=== PATIENT | female | born 1970 | race Hispanic/Latino ===

== ENCOUNTER 2017-03-16 08:09 | Observation (INO) | payer OTHER ==
[2017-03-16 08:16] VITALS: BMI 23.4
[2017-03-16] MEDS: Albuterol-Ipratrop 3 mg / 0.5 (3 ml) UD IH SCH ×3 (08:30→09:00)
--- NOTE | 2017-03-16 08:36 | ED PDOC ---
Arrival/HPI - General Chief Complaint: Shortness Of Breath Time Seen by Provider: 03/16/17 08:16 Historian: Patient, Family - History of Present Illness Narrative History of Present Illness (Text): 03/16/17 08:15 Gayle Matthews is a 46 year old female who presents to the emergency department for 1 month duration of shortness of breath and cough that worsened last night. Patient indicates that she experiences uncontrollable coughing and chest tightness which worsens when she lays flat. Patient's family endorses that patient smokes frequently and says patient's last cigarette was this morning. Patient used her inhaler treatment this morning to no relief. Patient denies any prior admissions or ER evaluations for asthma, any appetite changes, or any other complaint at this time. She states cough and shortness of breath worsened for past day. Denies calf pain or swelling. Denies pleuritic pain. PMD: Sr. Flowers 03/16/17 13:43 Time/Duration: Other (1 month) Symptom Onset: Gradual Symptom Course: Unchanged Severity Level: Moderate Activities at Onset: Rest Context: Home Past Medical History - Provider Review Nursing Documentation Reviewed: Yes - Infectious Disease Hx of Infectious Diseases: None - Pulmonary Hx Asthma: Yes - Psychiatric Hx Psychophysiologic Disorder: No Hx Anxiety: No Hx Bipolar Disorder: No Hx Depression: No Hx Emotional Abuse: No Hx Hallucinations: No Hx Panic Disorder: No Hx Post Traumatic Stress Disorder: No Hx Psychosis: No Hx Physical Abuse: No Hx Schizophrenia: No Hx Sexual Abuse: No Hx Substance Use: No - Surgical History Hx Tubal Ligation: Yes - Anesthesia Hx Anesthesia: Yes Hx Anesthesia Reactions: No Hx Malignant Hyperthermia: No - Suicidal Assessment Feels Threatened In Home Enviroment: No Family/Social History - Physician Review Nursing Documentation Reviewed: Yes Family/Social History: No Known Family HX Smoking Status: Heavy Smoker > 10 Cigarettes Daily Hx Alcohol Use: No Hx Substance Use: No Allergies/Home Meds Allergies/Adverse Reactions: Allergies Penicillins Allergy (Verified 03/16/17 08:16) ANAPHYLAXIS Home Medications: Home Meds Medication Instructions Recorded Confirmed No Known Home Med 03/16/17 03/16/17 Review of Systems - Review of Systems Constitutional: Fatigue. absent: Fevers, Night Sweats Eyes: absent: Vision Changes, Eye Pain ENT: absent: Hearing Changes Respiratory: SOB, Cough Cardiovascular: TUCKER. absent: Chest Pain, Edema, Calf Pain Gastrointestinal: absent: Abdominal Pain Genitourinary Female: absent: Dysuria, Hematuria, Urine Output Changes Musculoskeletal: absent: Arthralgias, Neck Pain Skin: absent: Rash Neurological: absent: Headache, Dizziness Endocrine: absent: Polyuria Hemo/Lymphatic: absent: Adenopathy Psychiatric: absent: Anxiety Physical Exam - Physical Exam Narrative Physical Exam (Text): Head: Atraumatic. Normocephalic. Eyes: PERRL. EOMI. Conjunctivae are not pale. ENT: No drooling, no angioedema, no pharyngeal erythema or exudates. No drooling. No stridor. Neck: Supple. Full ROM. No JVD. No lymphadenopathy. Cardiovascular: Regular rate. Regular rhythm. No rubs. Distal pulses are 2+ and symmetric. Pulmonary/Chest: Productive cough. Diffuse wheezing. Tachypneic. No accessory muscle usage. Abdominal: Soft and non-distended. There is no tenderness. No rebound, guarding, or rigidity. No organomegaly. Good bowel sounds. Back: No CVA tenderness. Extremities: No edema. No cyanosis. No clubbing. Full range of motion in all extremities. No calf tenderness. Distal pulses intact. Skin: Skin is warm and dry. No petechiae. No purpura. Neurological: Alert, awake, and oriented to person, place, time, and situation. Normal speech. Motor and sensory intact. Psychiatric: Good eye contact. Normal interaction, affect, and behavior. Vital Signs Reviewed: Yes Vital Signs Temp Pulse Resp BP Pulse Ox 03/16/17 11:16 83 16 114/78 94 L 03/16/17 10:10 85 17 124/81 94 L 03/16/17 08:34 98.8 F 03/16/17 08:21 20 100 03/16/17 08:10 88 20 135/74 100 Temperature: Afebrile Blood Pressure: Normal Pulse: Regular Respiratory Rate: Tachypneic Appearance: Positive for: Non-Toxic, Comfortable Pain Distress: Mild Mental Status: Positive for: Alert and Oriented X 3 Medical Decision Making ED Course and Treatment: 03/16/17 08:15 Impression: 46 year old female complaining of 1 month duration of shortness of breath and coughs that worsened last night. Patient denies any prior admission or ER evaluations for asthma. Patient smokes frequently, her last cigarette was this morning. Differential Diagnosis include but are not limited to: COPD Exacerbation Plan: -- EKG -- Chest X-ray -- Blood Culture and VBG -- Urine Culture and Urinalysis -- Labs -- Reassess and disposition Prior Visits: Notes and results from previous visits were reviewed. Patient last seen in ED on 05/18/15 for upper dental pain and right sided facial swelling since the day before arrival. Patient was discharged home. Progress Notes: Patient with significant past medical history of smoking, denies prior admissions or intubations. States she used nebulizers at home with no benefit prior to arrival. Denies chest pain or pleuritic discomfort. No calf pain or edema. No OCPs. No prolonged immobilization. No prior history of PE or DVT by her history. Patient with diffuse wheezing noted on initial examination. Multiple nebs and steroids ordered. 03/16/17 09:10 Chest X-ray: Creator : Dean Emanuel MD FINDINGS: LUNGS:No active pulmonary disease. PLEURA:No significant pleural effusion identified, no pneumothorax apparent. CARDIOVASCULAR:Normal. OSSEOUS STRUCTURES:No significant abnormalities. VISUALIZED UPPER ABDOMEN:Normal. OTHER FINDINGS:None. IMPRESSION: No active disease. 03/16/17 09:35 On reexamination, after multiple nebulizers and steroids, Patient O2 saturation is at 93% on room air. Wheezing improved by persistent medications. Chest X-ray shows emphysematous changes. Will admit for COPD Exacerbation. 03/16/17 09:[address] Flowers, who requests an ABG and accepts patient into his service. 03/16/17 09:44 Patient refuses ABG. Risks reviewed with patient. She states she feels better. Continues to deny any chest pain or pleuritic pain. - Lab Interpretations Lab Results: 03/16/17 08:30 03/16/17 08:30 Lab Results 03/16/17 09:00: Urine Color Yellow, Urine Appearance Clear, Urine pH 6.0, Ur Specific Antelope <= 1.005, Urine Protein Negative, Urine Glucose (UA) Negative, Urine Ketones Negative, Urine Blood Negative, Urine Nitrate Negative, Urine Bilirubin Negative, Urine Urobilinogen 0.2, Ur Leukocyte Esterase Negative, Urine HCG, Qual Negative 03/16/17 08:30: Sodium 135, Chloride 101, Potassium 4.0, Carbon Dioxide 22, Anion Gap 16, BUN 6 L, Creatinine 0.5, Est GFR ( Amer) > 60, Est GFR (Non -Af Amer) > 60, Random Glucose 94, Calcium 9.3, Total Bilirubin 0.3, AST 30, ALT 27, Alkaline Phosphatase 54, Lactate Dehydrogenase 352, Total Creatine Kinase 88, Troponin I < 0.01, NT-Pro-B Natriuret Pep 71.5, Total Protein 7.7, Albumin 4.3, Globulin 3.5, Albumin/Globulin Ratio 1.2 03/16/17 08:30: pO2 214 H, VBG pH 7.39, VBG pCO2 39.0 L, VBG HCO3 23.6, VBG Total CO2 24.8, VBG O2 Sat (Calc) 100.0 H, VBG Base Excess -1.2 L, VBG Potassium 4.6, Sodium 133.0, Chloride 104.0, Glucose 88, Lactate 2.2 H, FiO2 21.0, Venous Blood Potassium 4.6 03/16/17 08:30: PT 10.7, INR 0.99, APTT 32.7 H 03/16/17 08:30: WBC 10.3, RBC 4.40, Hgb 14.6, Hct 41.8, MCV 95.0, MCH 33.2, MCHC 34.9, RDW 12.3, Plt Count 393, MPV 9.4, Gran % 43.8 L, Lymph % (Auto) 37.8 H, Bourbon % (Auto) 5.8, Eos % (Auto) 12.0 H, Baso % (Auto) 0.6, Gran # 4.50, Lymph # 3.9 H, Bourbon # 0.6, Eos # 1.2 H, Baso # 0.06 I have reviewed the lab results: Yes - RAD Interpretation Radiology Orders: 03/16/17 08:25 CHEST PORTABLE [RAD] Stat Personal Care Worker: ED Physician, Radiologist - EKG Interpretation EKG Interpretation (Text): 03/16/17 13:52 EKG at 08:28 normal sinus rhythm with short [place], inferipor lead st changes Interpreted by ED Physician: Yes Type: 12 lead EKG Comparison: No previous EKG avail. - Medication Orders Current Medication Orders: Discontinued Medications Albuterol/Ipratropium (Duoneb 3 Mg/0.5 Mg (3 Ml) Ud) 3 ml IH Q15M YAZAN Stop: 03/16/17 09:01 Last Admin: 03/16/17 09:00 Dose: 3 ml Methylprednisolone (Solu-Medrol) 125 mg IVP STAT STA Stop: 03/16/17 08:27 Last Admin: 03/16/17 08:41 Dose: 125 mg - Scribe Statement The provider has reviewed the documentation as recorded by the Nola Emanuel Provider Scribe Attestation: All medical record entries made by the Nola were at my direction and personally dictated by me. I have reviewed the chart and agree that the record accurately reflects my personal performance of the history, physical exam, medical decision making, and the department course for this patient. I have also personally directed, reviewed, and agree with the discharge instructions and disposition. Disposition/Present on Arrival - Present on Arrival Any Indicators Present on Arrival: No History of DVT/PE: No History of Uncontrolled Diabetes: No Urinary Catheter: No History of Decub. Ulcer: No History Surgical Site Infection Following: None - Disposition Have Diagnosis and Disposition been Completed?: Yes Diagnosis: COPD exacerbation Disposition: HOSPITALIZED Disposition Time: 10:00 Patient Plan: Admission Condition: FAIR
[2017-03-16 08:41] LABS: ADD MANUAL DIFF? NO
[2017-03-16 08:43] LABS: VENOUS BLOOD GAS BASE EXCESS -1.2 mmol/L (0.0-2.0); VENOUS BLOOD PH 7.39 (7.32-7.43)
[2017-03-16 08:47] LABS: BASO # 0.06 K/mm3 (0.0-2.0); BASO % 0.6 % (0.0-3.0); EOS # 1.2 (0.0-0.7); GRAN % 43.8 % (50.0-68.0); HEMATOCRIT 41.8 % (36.0-48.0); LYMPH # 3.9 (1.2-3.4); LYMPH % 37.8 % (22.0-35.0); MEAN CORPUSCULAR HEMOGLOBIN 33.2 pg (25.0-35.0); MEAN CORPUSCULAR HGB CONC 34.9 g/dl (31.0-37.0); MEAN PLATELET VOLUME 9.4 fl (7.0-11.0); MONO # 0.6 (0.1-0.6); MONO % 5.8 % (1.0-6.0); PLATELET COUNT 393 10^3/uL (120.0-450.0); RED CELL DISTRIBUTION WIDTH 12.3 % (11.5-14.5); WHITE BLOOD COUNT 10.3 10^3/ul (4.5-11.0)
[2017-03-16 08:53] LABS: ALB/GLOB RATIO 1.2 (1.1-1.8); ALKALINE PHOSPHATASE 54 U/L (38-133); ALT/SGPT 27 U/L (7-56); AST/SGOT 30 U/L (15-39); BILIRUBIN,TOTAL 0.3 mg/dL (0.2-1.3); BLOOD UREA NITROGEN 6 mg/dL (7-21); CALCIUM 9.3 mg/dL (8.4-10.5); CARBON DIOXIDE 22 mmol/L (21-33); CHLORIDE 101 mmol/L (98-107); GFR AFRICAN-AMERICAN > 60; GLUCOSE,RANDOM 94 mg/dL (70-110); INR 0.99 (0.93-1.08); PARTIAL THROMBOPLASTIN TIME 32.7 Seconds (23.7-30.8); SODIUM 135 mmol/L (132-148); TOTAL PROTEIN 7.7 g/dL (5.8-8.3)
[2017-03-16 09:05] LABS: TROPONIN I < 0.01 ng/mL
--- NOTE | 2017-03-16 09:05 | RAD ---
HISTORY: sob COMPARISON: No prior. FINDINGS: LUNGS: No active pulmonary disease. PLEURA: No significant pleural effusion identified, no pneumothorax apparent. CARDIOVASCULAR: Normal. OSSEOUS STRUCTURES: No significant abnormalities. VISUALIZED UPPER ABDOMEN: Normal. OTHER FINDINGS: None. IMPRESSION: No active disease.
[2017-03-16 09:16] LABS: URINE BILIRUBIN NEGATIVE (NEGATIVE); URINE BLOOD NEGATIVE (NEGATIVE); URINE GLUCOSE (UA) NEGATIVE (NEGATIVE); URINE KETONE NEGATIVE (NEGATIVE); URINE LEUKOCYTE ESTERASE NEGATIVE Leu/uL (NEGATIVE); URINE PROTEIN NEGATIVE mg/dL (<30 mg/dL); URINE UROBILINOGEN 0.2 E.U./dL (<1 E.U./dL)
[2017-03-16 09:20] LABS: URINE APPEARANCE CLEAR (CLEAR); URINE COLOR YELLOW (YELLOW)
[2017-03-16 13:05] LABS: VENOUS BLOOD GAS BASE EXCESS 3.5 mmol/L (0.0-2.0)
--- NOTE | 2017-03-16 13:59 | CARD ---
APPROVED REPORT EKG Measurement Heart [id number] HI 108P [id number] <Conclusion> Sinus rhythm with short HI ST elevations 2,3,F, possible acute IL Biphasic T waves V 5,6 Suggest clinical correlation
[2017-03-16] MEDS ORDERED: Levalbuterol 1.25 MG/3 ML Inhal Soln UD IH PRN (17:48)
[2017-03-16 19:13] VITALS: RESP 20
[2017-03-16] MEDS: Budesonide 0.25 mg/2 ml Inhal Susp UD IH SCH (19:46)
[2017-03-16] MEDS: Arformoterol 15 mcg/2 ml Inh Sol IH SCH (19:47)
[2017-03-16] MEDS ORDERED: Arformoterol 15 mcg/2 ml Inh Sol IH SCH (20:00)
[2017-03-16] MEDS: MethylPREDNISolone 40 mg Vial IVP SCH (21:37)
--- NOTE | 2017-03-16 21:52 | CON ---
DATE: 03/16/2017 REFERRING PHYSICIAN: Dr. Flowers. REASON FOR CONSULT: Chronic obstructive lung disease with exacerbation. HISTORY OF PRESENT ILLNESS: This is a 46-year-old female who presented to the Emergency Room with __ ___ night with the breathing, cough, and shortness of breath. She has been having shortness of breat h for the last month or so with cough and chest tightness. She is an active smoker. Denies any hemo ptysis. No hematemesis, no hematuria, no diarrhea reported. PAST MEDICAL HISTORY: Tubal ligation, chronic obstructive lung disease. FAMILY HISTORY: No significant cardiopulmonary disease reported. SOCIAL HISTORY: She is a smoker. Denies any alcohol use. ALLERGIES: PENICILLIN. MEDICATIONS: She is on Brovana 15 mcg inhaled twice a day, doxycycline 100 mg twice a day, Pulmicort inhaled twice a day, Xopenex 1.25 mg on a p.r.n. basis. REVIEW OF SYSTEMS: No headache, no rhinitis. Has cough, shortness of breath. No chest pain, no naus ea, no vomiting, no diarrhea. No leg pain or leg swelling. PHYSICAL EXAMINATION: GENERAL: She is lying in the bed, no acute distress. VITAL SIGNS: Temp is 98, heart rate is 85, respiratory rate is 20, blood pressure 114/78, pulse ox 9 4% on room air. HEENT: Moist mucous membranes. Crowded airway. NECK: Supple. No JVD. LUNGS: Has a prolonged expiratory phase with some wheezing. HEART: S1, S2. ABDOMEN: Soft, nontender. No organomegaly. EXTREMITIES: There is no edema. NEUROLOGIC: Awake, alert, follows simple commands. LABORATORY DATA: Shows hemoglobin 14.6, hematocrit , WBC 10.3, platelet is 393. INR 0.99, PTT 37. VBG shows a pH of 7.40, pCO2 is 47/38; that is on room air. Sodium 135, potassium 4.0, chloride 101, bicarbonate is 22, BUN 6, creatinine 0.5, glucose is 94, calcium 9.3, total bilirubin 0.3, AST 30, ALT 27, alkaline phosphatase is 54. Troponin less than 0.01. ProBNP is 71, albumin is 4.3. Mariajose st x-ray done in the ER shows no infiltrate or effusion. IMPRESSION AND PLAN: Exacerbation of chronic obstructive lung disease. The patient is urged to stop smoking. Will give her Solu-Medrol 20 mg q. 8 hours, doxycycline 100 mg twice a day, inhaled broncho dilator. Gastric prophylaxis, Nicoderm patch. Thank you and will follow with you. Sharifa Barba MD cc: [phone] TT: 03/16/2017 21:51:50 Confirmation # [id number] Dictation # [id number] ln
[2017-03-17] MEDS: MethylPREDNISolone 40 mg Vial IVP SCH (05:52)
[2017-03-17] MEDS ORDERED: Pantoprazole 40 mg EC Tab PO SCH (06:30)
[2017-03-17 08:52] VITALS: BP 129/76; PULSE 67; TEMP 98.3; O2SAT 98
[2017-03-17] MEDS: Arformoterol 15 mcg/2 ml Inh Sol IH SCH (09:05)
[2017-03-17] MEDS: Budesonide 0.25 mg/2 ml Inhal Susp UD IH SCH (09:05)
--- NOTE | 2017-03-17 18:51 | PN ---
DATE: 03/17/2017 REFERRING PHYSICIAN: Dr. Flowers. SUBJECTIVE: She is sitting side of the bed. Night was unremarkable, feels better, decreased cough, decreased shortness of breath. No nausea, no vomiting, no diarrhea. No leg pain or leg swelling. OBJECTIVE: GENERAL: In no acute distress. VITAL SIGNS: Temp is 98, heart rate is 67, respiratory rate is 16, blood pressure 129/76, pulse ox 9 8% on room air. HEENT: Moist mucous membranes. No ulcer or oral thrush noted. NECK: Supple. No JVD. LUNGS: Has a fair airflow with a few rhonchi. HEART: S1 and S2. ABDOMEN: Soft, nontender. No organomegaly. EXTREMITIES: No edema. NEUROLOGIC: Awake, alert, follows simple commands. MEDICATIONS: Reviewed and noted. No changes in medication since yesterday. LABORATORY DATA: Reviewed. No new lab is reported since yesterday. MICROBIOLOGY: Blood culture and urine culture is no growth. IMPRESSION AND PLAN: Exacerbation of chronic obstructive lung disease, feeling much better. I urged the patient to stop smoking. May discharge home with tapering dose of steroids and doxycycline. Sh ould get outpatient PFT. Gastric prophylaxis. Thank you. Sharifa Barba MD cc: [phone] TT: 03/17/2017 18:50:57 Confirmation # [id number] Dictation # [id number] dn
--- NOTE | 2017-03-19 08:52 | HP ---
REASON FOR ADMISSION: Acute short of breath. HISTORY OF PRESENT ILLNESS: This 46-year-old female, she is a smoker. She works in a [employer]. She is exposed to a lot of ____ and chemicals. She has been short of breath, wheezing, coughin g for the last few days. The patient does have nebulizer machine at home. She has no history of chr onic obstructive pulmonary disease in the past but she has been using inhalers as outpatient at home. She has been coughing, short of breath, wheezing, got worse over time. Came to the Emergency Room for further evaluations. Denied any fever, nausea, vomiting, chills; any chest pain, any other compl aint. ALLERGIES: No known allergy. PAST MEDICAL HISTORY: Insignificant past medical history. Tubal ligations. She has nebulizer machi ne. Possible lung disease; however, never been diagnosed. MEDICATIONS: She has no medications at home except a nebulizer machine. Never had any lung medicine in the past. ALLERGIES: PENICILLIN. FAMILY HISTORY: The family history is insignificant, cardiopulmonary disease. SOCIAL HISTORY: She is . She ____ drinking ____. She smokes. She works at a [employer], which exposed to a lot of chemicals. REVIEW OF SYSTEMS: Otherwise negative except for her lung condition. PHYSICAL EXAMINATION: VITAL SIGNS: On 03/16/2017, temperature 98.6, heart rate 85, blood pressure 124/81, respirations 18, saturation 94% on room air. HEAD AND NECK: Normal. No JVD. No thyromegaly. CHEST: Bilateral wheeze. CARDIAC: First sound, second sound normal. ABDOMEN: Soft, nontender. EXTREMITIES: No edema. NEUROLOGICAL: Normal. LABORATORY STUDIES: White count 10.3, hemoglobin 14.6, hematocrit 41.8, platelets 393. Chemistry: Sodium 135, potassium 4, chloride 101, bicarb 22, BUN 6, creatinine 0.5. Liver function test is norm al. Troponin is negative. PT is normal. PTT 32.7, slightly elevated. Her baseline blood gas is as follows: ____ 214, pH of 7.39, pCO2 of 39. The patient had a urine analysis which was negative. S he also had a chest x-ray which shows no active pulmonary disease. The patient had an EKG, normal si nus rhythm, ST elevation in II, III and aVF; possible ____. IMPRESSION AND PLAN: Acute chronic obstructive pulmonary disease exacerbations. Continue steroids. Continue current medicines. Follow up clinically. Give steroids intravenous, inhaled bronchodilato r. Follow up clinically. Consult Dr. Barba. Luis Angel Flowers MD cc: [phone] TT: 03/18/2017 08:59:24 sn
--- NOTE | 2017-03-19 09:00 | DS ---
A 46-year-old female, came in with acute respiratory distress, wheezing. The patient responded well to IV steroids. Seen by it program engagement director, Dr. Barba. She feels better. She has also blood cultures n egative. Troponin was negative. She has no chest pain. She is sitting with the family, walking alejandra und, no distress, no chest pain, no nausea, no vomiting, no dizzy and afebrile. The patient wants to go home. I discussed with the patient. I will talk with the it program engagement director. She wants to go home r ight away. We advised the patient to wait until we get everything with the other [employer] consultant, but she was pushing to get out of the hospital. She feels better. She has no distress and she was clinical ly stable. PHYSICAL EXAMINATION ON DISCHARGE: VITAL SIGNS: Temperature 98.4, temperature 98.3, heart rate 67, blood pressure 129/76, respiration 2 0, saturation 98%. HEAD AND NECK: Normal. No JVD, no thyromegaly. CHEST: Clear, good air entry. CARDIAC: First sound, second sound normal. ABDOMEN: Soft, nontender. EXTREMITIES: No edema. NEUROLOGIC: Normal. IMPRESSION: 1. Acute chronic obstructive pulmonary disease exacerbation. The patient is feeling better. We jeannie l continue steroids, continue inhaled bronchodilators. We will further consult with Dr. Barba. The patient did not wait. She wants to go home. She will sign against medical advice. However, based on her clinical condition, seems stable. I seen Dr. Barba's note. She is doing better. She will b e okay to go home, so patient was given prescriptions for Z-Shakir, Medrol pack, inhaled bronchodilators , Ventolin and discharged home to be followed up in the office Sunday. 2. Nicotine smoking. I discussed the risk of nicotine, about her health condition general for cardi ovascular, cerebrovascular and cancer increased risk. We will put a plan for discontinue smoking. N icotine patch, Wellbutrin, Chantix. We have all these options. We will continue current therapy. D ischarge the patient home. Follow up in the office Sunday. Luis Angel Flowers MD cc: [phone] TT: 03/18/2017 15:29:57 en
== END 2017-03-17 16:51 | disposition home or self-care (01) ==
LOC: ED 08:09 → INTOOBSV 09:46 → ERH 09:46 → 5RSO 11:46
PROVIDERS: ADMIT Hospitalist; ATTEND Internal Medicine
DX: J44.1 Chronic obstructive pulmonary disease with (acute) exacerbation (principal); F17.210 Nicotine dependence, cigarettes, uncomplicated; Z88.0 Allergy status to penicillin
CPT/HCPCS: 71010; 80053; 81003; 82550; 82803; 83615; 83880; 84484; 84703; 85025; 85610; 85730; 87040; 87086; 93005; 94640; 96374; 99285; G0378; J2920; J2930